=== PATIENT | male | born 1975 | race Two or more races ===

== ENCOUNTER 2018-03-22 13:36 | Outpatient (CLI) | payer OTHER ==
[~2018-03-22 13:36] MED LIST: INTESTINEX1 CAP PO; PROTONIX40 M1 PO; PROZAC20 MG PO; ZANTAC150 M3 PO
== END 2018-03-22 13:47 | disposition home or self-care (01) ==
LOC: RAD 13:36
DX: S93.691A Other sprain of right foot, initial encounter (principal)

== ENCOUNTER 2019-04-19 09:09 | Outpatient (CLI) | payer OTHER | END 2019-04-19 09:28 | disposition home or self-care (01) | LOC: SONOGRAMA 09:09 | DX: E04.2 Nontoxic multinodular goiter (principal) ==

== ENCOUNTER 2021-06-04 08:00 | Outpatient (CLI) | payer OTHER | END 2021-06-04 08:30 | disposition home or self-care (01) | LOC: PPH VACUNA 08:00 | PROVIDERS: ATTEND Emergency Medicine Pediatric Emergency Medicine | DX: Z23 Encounter for immunization (principal) ==

== ENCOUNTER 2021-12-22 07:46 | Outpatient (CLI) | payer OTHER | END 2021-12-22 08:14 | disposition home or self-care (01) | LOC: SONOGRAMA 07:46 | PROVIDERS: ATTEND Specialist | DX: N13.0 Hydronephrosis with ureteropelvic junction obstruction (principal); N20.1 Calculus of ureter; K75.81 Nonalcoholic steatohepatitis (NASH) ==

== ENCOUNTER 2024-05-03 08:36 | Outpatient (CLI) | payer OTHER | END 2024-05-03 08:48 | disposition home or self-care (01) | LOC: RAD 08:36 | PROVIDERS: ATTEND Podiatrist Foot Surgery | DX: M77.30 Calcaneal spur, unspecified foot (principal); M72.2 Plantar fascial fibromatosis ==

== ENCOUNTER → 2024-08-09 07:55 | Outpatient (CLI) | payer OTHER | END | disposition home or self-care (01) | LOC: NUCLEAR 07:55 | PROVIDERS: ATTEND Specialist | DX: G45.9 Transient cerebral ischemic attack, unspecified (principal) ==

== ENCOUNTER 2024-08-10 08:47 | Outpatient (CLI) | payer OTHER | END 2024-08-10 09:04 | disposition home or self-care (01) | LOC: MRI 08:47 | PROVIDERS: ATTEND Specialist | DX: I63.9 Cerebral infarction, unspecified (principal) | CPT/HCPCS: 70552 ==

== ENCOUNTER 2024-08-24 08:17 | Outpatient (CLI) | payer OTHER | END 2024-08-24 08:18 | disposition home or self-care (01) | LOC: MRI 08:17 | PROVIDERS: ATTEND Neuromusculoskeletal Medicine & OMM | DX: I72.9 Aneurysm of unspecified site (principal); I65.1 Occlusion and stenosis of basilar artery; I65.09 Occlusion and stenosis of unspecified vertebral artery; I65.29 Occlusion and stenosis of unspecified carotid artery; Q28.2 Arteriovenous malformation of cerebral vessels | CPT/HCPCS: 70544 ==

== ENCOUNTER 2025-03-13 08:22 | Outpatient (CLI) | payer OTHER | END 2025-03-13 08:27 | disposition home or self-care (01) | LOC: RAD 08:22 | PROVIDERS: ATTEND Podiatrist Foot & Ankle Surgery | DX: M20.12 Hallux valgus (acquired), left foot (principal); M20.11 Hallux valgus (acquired), right foot ==